=== PATIENT | female | born 2000 | race Caucasian/White ===

== ENCOUNTER 2024-03-29 21:41 | Emergency (ER) | payer MEDICAID, OTHER ==
[~2024-03-29] VITALS: Ht 149.9 cm; Wt 53.5 kg
[2024-03-29 22:56] VITALS: BP 126/77; TEMP 98.7; O2SAT 100
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
--- NOTE | 2024-03-29 23:02 | NUR ---
URINE COLLECTED AND SENT TO LAB
--- NOTE | 2024-03-29 23:38 | NUR ---
Patient discharged to home in stable condition. Written and verbal after care instructions given. Patient verbalizes understanding of instruction.
== END 2024-03-29 23:39 | disposition home or self-care (01) ==
LOC: ER 21:58
DX: R10.13 Epigastric pain (principal); M54.6 Pain in thoracic spine; Z60.2 Problems related to living alone